=== PATIENT | female | born 1990 | race Caucasian/White ===

== ENCOUNTER 2017-04-14 06:44 | Inpatient (IN) | payer BC ==
--- NOTE | 2017-04-14 08:19 | PCM.LDHP ---
L&D History of Present Illness - General Date of Service: 04/14/17 Admit Problem/Dx: Admission Diagnosis/Problem Admission Diagnosis/Problem Source of Information: Patient, EMS History Limitations: Reports: No Limitations - History of Present Illness Introduction:: Patient is a 26 year old 5 para 1-1-2-2, white female with an ANGÉLICA of , who was admitted with complaints of contractions. She is presently 4 cm dilated course: LMP was on 07/13/2016 was definite, and on control at the time of conception. She does not want an epidural. She had LGSIL on pap smear. She does have a history of hemorrhages. Laboratory Testing: Blood type is O positive and antibody negative. Her first trimester labs hemoglobin was 12.5 and platelets were 255,000. She is rubella immune. HIV and hepatitis B assays were negative. Chlamydia and gonorrhea were negative. Second trimester labs showed hemoglobin of 12.2 and platelets were 210,000. One hour gluocse was 129 - normal. She is GBS negative. - Related Data Allergies/Adverse Reactions: Allergies Allergy/AdvReac Type Severity Reaction Status Date / Time acetaminophen [From Lortab] Allergy Other Verified 09/15/15 19:12 [employer] celecoxib [From Celebrex] Allergy Hives Verified 09/15/15 19:12 [employer] hydrocodone bitartrate Allergy Other Verified 09/15/15 19:12 [employer] [From Lortab] Sulfa (Sulfonamide Allergy Hives Verified 09/15/15 19:12 [employer] Antibiotics) Past Medical History - Past Health History Medical/Surgical History: Denies Medical/Surgical History Cardiovascular History: Reports: Heart Murmur Other OB/BYN History: hemorrhage at 15 and 22 days - Past Surgical History Female Surgical History: Reports: D&C (for SAB) Social & Family History - Family History Cardiac: Reports: High Cholesterol (father), [place] (maternal grandmother) Immunologic: Reports: Other (See Below) (scleroderma; mother) Other Oncologic Family History: stomach cancer; paternal grandfather - Tobacco Use Smoking Status *Q: Never Smoker Second Hand Smoke Exposure: No - Recreational Drug Use Recreational Drug Use: No H&P Review of Systems - Review of Systems: Review Of Systems: See Below General: Reports: No Symptoms Cardiovascular: Reports: No Symptoms Gastrointestinal: Reports: No Symptoms Genitourinary: Reports: No Symptoms L&D Exam - Exam Exam: See Below - Vital Signs Vital Signs: pre weight of 163 current weight 214 Weight: 165 lb - OB Specific Fundal Height In cm: 38 Movement: Active Heart Tones: Present Heart Tones per Min: 143 Heart Rate (FHR) Variability: Moderate (6-25 bmp) - Calrk Score Clark Score Cervix Position: Midposition Clark Score Consistency: Soft Clark Score Dilation: 3-4 cm Clark Score 's Station: -2 - Exam General: Alert, Oriented Neck: Supple, Trachea Midline Lungs: Clear to Auscultation, Normal Respiratory Effort Cardiovascular: Regular Rate, Regular Rhythm GI/Abdominal Exam: Soft, Non-Tender Extremities: No Pedal Edema - Problem List (1) 39 weeks gestation of SNOMED Code(s): 26389883 ICD Code: Z3A.39 - 39 WEEKS GESTATION OF Status: Acute Current Visit: Yes Problem List Initiated/Reviewed/Updated: No Assessment/Plan Comment:: Assessment: 1. Term intrauterine at 39 and 2/7th weeks gestational age, active labor, rogression of cervical dilation. 2. Group B strep screen negative 3. Patient does not desire epidural Plan: 1. Anticipate normal spontaneous vaginal delivery 2. epidural prn patient's desire 3. cbc if patient desires epidural
[2017-04-14] MEDS ORDERED: Nalbuphine 20 MG/1 ML Amp IVPUSH PRN (08:44)
[2017-04-14] MEDS ORDERED: Misoprostol 200 MCG Tab PO PRN ×2 (08:44→21:00)
[2017-04-14] MEDS ORDERED: Sodium Chloride 0.9% 10 ML Syringe FLUSH PRN (08:44)
[2017-04-14] MEDS ORDERED: Ondansetron 4 MG/2 ML SDV IVPUSH PRN (08:44)
[2017-04-14] MEDS ORDERED: Diphtheria,Pertussis(Acell),Tetanus Vaccine 0.5 ML SDV IM ONE (10:05)
[2017-04-14] MEDS ORDERED: Lidocaine 1% 50 ML MDV INJECT ONE (11:00)
[2017-04-14] MEDS ORDERED: Oxytocin/Lactated Ringers 10 UNIT/1,000 ML BAG IV ONE (11:23)
[2017-04-14] MEDS ORDERED: Oxytocin/Lactated Ringers 10 UNIT/1,000 ML BAG IV SCH (11:30)
[2017-04-14] MEDS ORDERED: Lactated Ringers 1,000 ML IV SCH (11:30)
--- NOTE | 2017-04-14 12:52 | PCM.SN ---
- Free Text/Narrative Note: Cervix 7 cm, 80% effaced, soft, mid-position, vertex-1 Cat I FHR
[2017-04-14] MEDS ORDERED: Lidocaine 1% 50 ML MDV ONE (13:13)
--- NOTE | 2017-04-14 14:30 | PCM.DEL ---
L & D Note - General Info Date of Service: 04/14/17 Mother's Due Date: 04/19/17 - Delivery Note Labor: Spontaneous, Augmented by ARM, Augmented by Oxytocin Delivery Outcome: Livebirth (Male liveborn Wednesday 1410 hrs. 04/14/17 REBECCA Apgars 8/9 weight pending) Infant Delivery Method: Spontaneous Vaginal Delivery Infant Delivery Mode: Spontaneous Presentation: Left Occiput Anterior (REBECCA) Nuchal Cord: Present (Times one easily reduced over the head) Prep: Povidone-Iodine (Betadine Anesthesia Type: None Amniotic Fluid Description: Clear Episiotomy Type: None Laceration: None Placenta: Intact, Spontaneous (Delivered intact Silver 1415 hrs. 04/14/17 examined discarded) Cord: 3 Vessels Estimated Blood Loss: 200 Resuscitation Needed: No : Suctioned, Bulb Syringe, Stimulated, Warmed, [place] Used Provider: Alexander Smith Score 1 min: 8 Score 5 min: 9 - Patient Data Vitals - Most Recent: Last Vital Signs Temp 97.2 F 04/14/17 08:00 Pulse 83 04/14/17 08:00 Resp 18 04/14/17 08:00 BP 126/73 04/14/17 08:00 Pulse Ox 99 04/14/17 08:00 Weight - Most Recent: 165 lb Lab Results Last 24 Hours: Laboratory Results - last 24 hr 04/14/17 04/14/17 Range/Units 08:00 08:00 WBC 11.96 H (3.98-10.04) K/mm3 RBC 4.02 (3.98-5.22) M/mm3 Hgb 12.8 (11.2-15.7) gm/L Hct 38.3 (34.1-44.9) % MCV 95.3 H (79.4-94.8) fl MCH 31.8 (25.6-32.2) pg MCHC 33.4 (32.2-35.5) g/dl RDW Std Deviation 47.2 H (36.4-46.3) fL Plt Count 166 L (182-369) K/mm3 MPV 11.4 (9.4-12.3) fl Blood Type O POSITIVE Gel Antibody Screen Negative Med Orders - Current: Current Medications Oxytocin 20 unit/ Lactated (Ringer's) 1,002 mls @ 500 mls/hr IV ASDIRECTED JACKIE Last Admin: 04/14/17 14:11 Dose: 999 mls/hr Oxytocin/Lactated Ringer's (Pitocin In Lr 10 Units/1,000 Ml) 10 unit in 1,000 mls @ 12 mls/hr IV TITRATE JACKIE; 2 MUNITS/MIN PRN Reason: Protocol Last Titration: 04/14/17 13:59 Dose: 8 munits/min, 48 mls/hr Lactated Ringer's (Ringers, Lactated) 1,000 mls @ 125 mls/hr IV ASDIRECTED JACKIE Last Admin: 04/14/17 11:33 Dose: 125 mls/hr Misoprostol (Cytotec) 400 mcg PO BID PRN PRN Reason: Excessive vaginal bleeding Last Admin: 04/14/17 14:15 Dose: 400 mcg Nalbuphine HCl (Nubain) 10 mg IVPUSH Q2H PRN PRN Reason: Pain (moderate 4-6) Ondansetron HCl (Zofran) 4 mg IVPUSH Q4H PRN PRN Reason: Nausea/Vomiting Sodium Chloride (Saline Flush) 10 ml FLUSH ASDIRECTED PRN PRN Reason: Keep Vein Open Discontinued Medications Diphtheria/Tetanus/Acell Pertussis (Adacel) 0.5 ml IM .ONCE ONE Stop: 04/14/17 10:06 Oxytocin/Lactated Ringer's (Pitocin In Lr 10 Units/1,000 Ml) Confirm Administered Dose 10 unit in 1,000 mls @ as directed IV .STK-MED ONE Stop: 04/14/17 11:24 Lidocaine HCl (Xylocaine 1%) 20 ml INJECT ONETIME ONE Stop: 04/14/17 11:01 Lidocaine HCl (Xylocaine 1%) Confirm Administered Dose 50 ml .ROUTE .STK-MED ONE Stop: 04/14/17 13:14 - Problem List & Annotations (1) 39 weeks gestation of SNOMED Code(s): 49233988 Code(s): Z3A.39 - 39 WEEKS GESTATION OF Status: Acute Current Visit: Yes (2) Nuchal cord without compression, delivered, current hospitalization SNOMED Code(s): 04416782 Code(s): O69.81X0 - LABOR AND DEL COMP BY CORD AROUND NECK, W/O COMPRSN, UNSP Status: Acute Current Visit: Yes - Problem List Review Problem List Initiated/Reviewed/Updated: No - My Orders Last 24 Hours: My Active Orders 04/14/17 08:44 Patient Status [ADT] Routine Activity as Tolerated [RC] PFP Communication Order [RC] ASDIRECTED Notify Provider [RC] PFP Notify Provider [RC] PRN Vital Signs [RC] PER UNIT ROUTINE Misoprostol [Cytotec] 400 mcg PO BID PRN Nalbuphine [Nubain] 10 mg IVPUSH Q2H PRN Ondansetron [Zofran] 4 mg IVPUSH Q4H PRN Sodium Chloride 0.9% [Saline Flush] 10 ml FLUSH ASDIRECTED PRN Electronic Heart Tones Ext w TOCO [WOMSER] Routine Electronic Heart Tones Internal [WOMSER] Per Unit Routine Peripheral IV Insertion Adult [OM.PC] Routine Resuscitation Status Routine 04/14/17 08:45 Peripheral IV Care [RC] . DIRECTED Oxytocin [Pitocin] 20 unit Lactated Ringers [Ringers, Lactated] 1,000 ml IV ASDIRECTED 04/14/17 10:05 Vaccines to be Administered [RC] PER UNIT ROUTINE 04/14/17 11:30 Lactated Ringers [Ringers, Lactated] 1,000 ml IV ASDIRECTED Oxytocin/Lactated Ringers [Pitocin in LR 10 Units/1,000 ML] 10 unit in 1,000 ml IV TITRATE 04/14/17 Breakfast Clear Liquid Diet [DIET] - Plan Plan:: Assessment: 1. Term intrauterine at 39 and 2/7th weeks gestational age, active labor, rogression of cervical dilation. 2. Group B strep screen negative 3. Patient does not desire epidural Plan: 1. Anticipate normal spontaneous vaginal delivery 2. epidural prn patient's desire 3. cbc if patient desires epidural
[2017-04-14] MEDS ORDERED: Acetaminophen 325 MG Tab PO PRN (14:59)
[2017-04-14] MEDS ORDERED: Benzocaine/Menthol 20%-0.5% Spray 56 GM Canister TOP PRN (15:13)
[2017-04-14] MEDS ORDERED: Witch Hazel Medicated Pads 100/Jar TOP PRN (15:13)
[2017-04-14] MEDS: Docusate Sodium 100 MG Cap PO PRN (15:26)
[2017-04-14] MEDS: Ibuprofen 600 MG Tab PO PRN ×2 (15:27→20:08)
[2017-04-14] MEDS ORDERED: Misoprostol 200 MCG Tab ONE (16:55)
[2017-04-14] MEDS: Misoprostol 200 MCG Tab PO SCH ×3 (16:58→21:18)
[2017-04-14] MEDS ORDERED: Misoprostol 100 MCG Tab ONE (21:12)
[2017-04-15] MEDS ORDERED: Misoprostol 200 MCG Tab PO PRN ×2 (03:00→09:28)
[2017-04-15] MEDS ORDERED: Misoprostol 100 MCG Tab ONE (03:23)
[2017-04-15] MEDS: Ibuprofen 600 MG Tab PO PRN ×2 (03:43→16:30)
--- NOTE | 2017-04-15 09:31 | PCM.SN ---
- Free Text/Narrative Note: Moderate bleeding through the night on Cytotec q6h. Breast feeding. Chest clear , normal heart exam, uterus involuting, slight increased vaginal bleeding under control with cytotec, no leg cramping. Lives in [place] ([address]) will keep until tomorrow.
[2017-04-15] MEDS: Misoprostol 200 MCG Tab PO SCH ×3 (10:04→22:09)
[2017-04-15] MEDS: Docusate Sodium 100 MG Cap PO PRN (16:31)
[2017-04-15] MEDS: Loratadine 10 MG Tab PO SCH (22:10)
[2017-04-16] MEDS: Misoprostol 200 MCG Tab PO SCH ×2 (03:47→09:18)
[2017-04-16 03:51] VITALS: BP 122/60
--- NOTE | 2017-04-16 08:57 | PCM.DCSUM1 ---
Discharge Summary - Hospital Course Free Text/Narrative:: [facility] LIVE L/D Delivery Note Patient Name: FLAKO MORE Date of : 88 Patient Status: Inpatient Attending Provider: Alexander Smith Date: 04/14/17 14:26 Initialization Date: 04/14/17 14:26 L & D Note - General Info Date of Service: 04/14/17 Mother's Due Date: 04/19/17 - Delivery Note Labor: Spontaneous, Augmented by ARM, Augmented by Oxytocin Delivery Outcome: Livebirth (Male liveborn Wednesday 1410 hrs. 04/14/17 REBECCA Apgars 8/9 weight pending) Delivery Method: Spontaneous Vaginal Delivery Infant Delivery Mode: Spontaneous Presentation: Left Occiput Anterior (REBECCA) Nuchal Cord: Present (Times one easily reduced over the head) Prep: Povidone-Iodine (Betadine Anesthesia Type: None Amniotic Fluid Description: Clear Episiotomy Type: None Laceration: None Placenta: Intact, Spontaneous (Delivered intact [facility] 1415 hrs. 04/14/17 examined discarded) Cord: 3 Vessels Estimated Blood Loss: 200 Resuscitation Needed: No Lima: Suctioned, Bulb Syringe, Stimulated, Warmed, Floral Used Provider: Alexander Smith Score 1 min: 8 Score 5 min: 9 - Patient Data Vitals - Most Recent: Last Vital Signs Temp 97.2 F 04/14/17 08:00 Pulse 83 04/14/17 08:00 Resp 18 04/14/17 08:00 BP 126/73 04/14/17 08:00 Pulse Ox 99 04/14/17 08:00 Weight - Most Recent: 165 lb Lab Results Last 24 Hours: Laboratory Results - last 24 hr 04/14/17 04/14/17 Range/Units 08:00 08:00 WBC 11.96 H (3.98-10.04) K/mm3 RBC 4.02 (3.98-5.22) M/mm3 Hgb 12.8 (11.2-15.7) gm/L Hct 38.3 (34.1-44.9) % MCV 95.3 H (79.4-94.8) fl MCH 31.8 (25.6-32.2) pg MCHC 33.4 (32.2-35.5) g/dl RDW Std Deviation 47.2 H (36.4-46.3) fL Plt Count 166 L (182-369) K/mm3 MPV 11.4 (9.4-12.3) fl Blood Type O POSITIVE Gel Antibody Screen Negative Med Orders - Current: Current Medications Oxytocin 20 unit/ Lactated (Ringer's) 1,002 mls @ 500 mls/hr IV ASDIRECTED JACKIE Last Admin: 04/14/17 14:11 Dose: 999 mls/hr Oxytocin/Lactated Ringer's (Pitocin In Lr 10 Units/1,000 Ml) 10 unit in 1,000 mls @ 12 mls/hr IV TITRATE JACKIE; 2 MUNITS/MIN PRN Reason: Protocol Last Titration: 04/14/17 13:59 Dose: 8 munits/min, 48 mls/hr Lactated Ringer's (Ringers, Lactated) 1,000 mls @ 125 mls/hr IV ASDIRECTED JACKIE Last Admin: 04/14/17 11:33 Dose: 125 mls/hr Misoprostol (Cytotec) 400 mcg PO BID PRN PRN Reason: Excessive vaginal bleeding Last Admin: 04/14/17 14:15 Dose: 400 mcg Nalbuphine HCl (Nubain) 10 mg IVPUSH Q2H PRN PRN Reason: Pain (moderate 4-6) Ondansetron HCl (Zofran) 4 mg IVPUSH Q4H PRN PRN Reason: Nausea/Vomiting Sodium Chloride (Saline Flush) 10 ml FLUSH ASDIRECTED PRN PRN Reason: Keep Vein Open Discontinued Medications Diphtheria/Tetanus/Acell Pertussis (Adacel) 0.5 ml IM .ONCE ONE Stop: 04/14/17 10:06 Oxytocin/Lactated Ringer's (Pitocin In Lr 10 Units/1,000 Ml) Confirm Administered Dose 10 unit in 1,000 mls @ as directed IV .STK-MED ONE Stop: 04/14/17 11:24 Lidocaine HCl (Xylocaine 1%) 20 ml INJECT ONETIME ONE Stop: 04/14/17 11:01 Lidocaine HCl (Xylocaine 1%) Confirm Administered Dose 50 ml .ROUTE .STK-MED ONE Stop: 04/14/17 13:14 - Problem List & Annotations (1) 39 weeks gestation of SNOMED Code(s): 29904520 Code(s): Z3A.39 - 39 WEEKS GESTATION OF Status: Acute Current Visit: Yes (2) Nuchal cord without compression, delivered, current hospitalization SNOMED Code(s): 14428935 Code(s): O69.81X0 - LABOR AND DEL COMP BY CORD AROUND NECK, W/O COMPRSN, UNSP Status: Acute Current Visit: Yes - Problem List Review Problem List Initiated/Reviewed/Updated: No - My Orders Last 24 Hours: My Active Orders 04/14/17 08:44 Patient Status [ADT] Routine Activity as Tolerated [RC] PFP Communication Order [RC] ASDIRECTED Notify Provider [RC] PFP Notify Provider [RC] PRN Vital Signs [RC] PER UNIT ROUTINE Misoprostol [Cytotec] 400 mcg PO BID PRN Nalbuphine [Nubain] 10 mg IVPUSH Q2H PRN Ondansetron [Zofran] 4 mg IVPUSH Q4H PRN Sodium Chloride 0.9% [Saline Flush] 10 ml FLUSH ASDIRECTED PRN Electronic Heart Tones Ext w TOCO [WOMSER] Routine Electronic Heart Tones Internal [WOMSER] Per Unit Routine Peripheral IV Insertion Adult [OM.PC] Routine Resuscitation Status Routine 04/14/17 08:45 Peripheral IV Care [RC] . DIRECTED Oxytocin [Pitocin] 20 unit Lactated Ringers [Ringers, Lactated] 1,000 ml IV ASDIRECTED 04/14/17 10:05 Vaccines to be Administered [RC] PER UNIT ROUTINE 04/14/17 11:30 Lactated Ringers [Ringers, Lactated] 1,000 ml IV ASDIRECTED Oxytocin/Lactated Ringers [Pitocin in LR 10 Units/1,000 ML] 10 unit in 1,000 ml IV TITRATE 04/14/17 Breakfast Clear Liquid Diet [DIET] - Plan Plan:: Assessment: 1. Term intrauterine at 39 and 2/7th weeks gestational age, active labor, rogression of cervical dilation. 2. Group B strep screen negative 3. Patient does not desire epidural Plan: 1. Anticipate normal spontaneous vaginal delivery 2. epidural prn patient's desire 3. cbc if patient desires epidural HPI Initial Comments: [facility] LIVE L/D Delivery Note Patient Name: FLAKO MORE Date of : 88 Patient Status: Inpatient Attending Provider: Alexander Smith Date: 04/14/17 14:26 Initialization Date: 04/14/17 14:26 L & D Note - General Info Date of Service: 04/14/17 Mother's Due Date: 04/19/17 - Delivery Note Labor: Spontaneous, Augmented by ARM, Augmented by Oxytocin Delivery Outcome: Livebirth (Male liveborn Wednesday 1410 hrs. 04/14/17 REBECCA Apgars 8/9 weight pending) Delivery Method: Spontaneous Vaginal Delivery Infant Delivery Mode: Spontaneous Presentation: Left Occiput Anterior (REBECCA) Nuchal Cord: Present (Times one easily reduced over the head) Prep: Povidone-Iodine (Betadine Anesthesia Type: None Amniotic Fluid Description: Clear Episiotomy Type: None Laceration: None Placenta: Intact, Spontaneous (Delivered intact [facility] 1415 hrs. 04/14/17 examined discarded) Cord: 3 Vessels Estimated Blood Loss: 200 Resuscitation Needed: No Lima: Suctioned, Bulb Syringe, Stimulated, Warmed, Floral Used Provider: Alexander Smith Score 1 min: 8 Score 5 min: 9 - Patient Data Vitals - Most Recent: Last Vital Signs Temp 97.2 F 04/14/17 08:00 Pulse 83 04/14/17 08:00 Resp 18 04/14/17 08:00 BP 126/73 04/14/17 08:00 Pulse Ox 99 04/14/17 08:00 Weight - Most Recent: 165 lb Lab Results Last 24 Hours: Laboratory Results - last 24 hr 04/14/17 04/14/17 Range/Units 08:00 08:00 WBC 11.96 H (3.98-10.04) K/mm3 RBC 4.02 (3.98-5.22) M/mm3 Hgb 12.8 (11.2-15.7) gm/L Hct 38.3 (34.1-44.9) % MCV 95.3 H (79.4-94.8) fl MCH 31.8 (25.6-32.2) pg MCHC 33.4 (32.2-35.5) g/dl RDW Std Deviation 47.2 H (36.4-46.3) fL Plt Count 166 L (182-369) K/mm3 MPV 11.4 (9.4-12.3) fl Blood Type O POSITIVE Gel Antibody Screen Negative Med Orders - Current: Current Medications Oxytocin 20 unit/ Lactated (Ringer's) 1,002 mls @ 500 mls/hr IV ASDIRECTED JACKIE Last Admin: 04/14/17 14:11 Dose: 999 mls/hr Oxytocin/Lactated Ringer's (Pitocin In Lr 10 Units/1,000 Ml) 10 unit in 1,000 mls @ 12 mls/hr IV TITRATE JACKIE; 2 MUNITS/MIN PRN Reason: Protocol Last Titration: 04/14/17 13:59 Dose: 8 munits/min, 48 mls/hr Lactated Ringer's (Ringers, Lactated) 1,000 mls @ 125 mls/hr IV ASDIRECTED JACKIE Last Admin: 04/14/17 11:33 Dose: 125 mls/hr Misoprostol (Cytotec) 400 mcg PO BID PRN PRN Reason: Excessive vaginal bleeding Last Admin: 04/14/17 14:15 Dose: 400 mcg Nalbuphine HCl (Nubain) 10 mg IVPUSH Q2H PRN PRN Reason: Pain (moderate 4-6) Ondansetron HCl (Zofran) 4 mg IVPUSH Q4H PRN PRN Reason: Nausea/Vomiting Sodium Chloride (Saline Flush) 10 ml FLUSH ASDIRECTED PRN PRN Reason: Keep Vein Open Discontinued Medications Diphtheria/Tetanus/Acell Pertussis (Adacel) 0.5 ml IM .ONCE ONE Stop: 04/14/17 10:06 Oxytocin/Lactated Ringer's (Pitocin In Lr 10 Units/1,000 Ml) Confirm Administered Dose 10 unit in 1,000 mls @ as directed IV .STK-MED ONE Stop: 04/14/17 11:24 Lidocaine HCl (Xylocaine 1%) 20 ml INJECT ONETIME ONE Stop: 04/14/17 11:01 Lidocaine HCl (Xylocaine 1%) Confirm Administered Dose 50 ml .ROUTE .STK-MED ONE Stop: 04/14/17 13:14 - Problem List & Annotations (1) 39 weeks gestation of SNOMED Code(s): 54642985 Code(s): Z3A.39 - 39 WEEKS GESTATION OF Status: Acute Current Visit: Yes (2) Nuchal cord without compression, delivered, current hospitalization SNOMED Code(s): 49419079 Code(s): O69.81X0 - LABOR AND DEL COMP BY CORD AROUND NECK, W/O COMPRSN, UNSP Status: Acute Current Visit: Yes - Problem List Review Problem List Initiated/Reviewed/Updated: No - My Orders Last 24 Hours: My Active Orders 04/14/17 08:44 Patient Status [ADT] Routine Activity as Tolerated [RC] PFP Communication Order [RC] ASDIRECTED Notify Provider [RC] PFP Notify Provider [RC] PRN Vital Signs [RC] PER UNIT ROUTINE Misoprostol [Cytotec] 400 mcg PO BID PRN Nalbuphine [Nubain] 10 mg IVPUSH Q2H PRN Ondansetron [Zofran] 4 mg IVPUSH Q4H PRN Sodium Chloride 0.9% [Saline Flush] 10 ml FLUSH ASDIRECTED PRN Electronic Heart Tones Ext w TOCO [WOMSER] Routine Electronic Heart Tones Internal [WOMSER] Per Unit Routine Peripheral IV Insertion Adult [OM.PC] Routine Resuscitation Status Routine 04/14/17 08:45 Peripheral IV Care [RC] . DIRECTED Oxytocin [Pitocin] 20 unit Lactated Ringers [Ringers, Lactated] 1,000 ml IV ASDIRECTED 04/14/17 10:05 Vaccines to be Administered [RC] PER UNIT ROUTINE 04/14/17 11:30 Lactated Ringers [Ringers, Lactated] 1,000 ml IV ASDIRECTED Oxytocin/Lactated Ringers [Pitocin in LR 10 Units/1,000 ML] 10 unit in 1,000 ml IV TITRATE 04/14/17 Breakfast Clear Liquid Diet [DIET] - Plan Plan:: Assessment: 1. Term intrauterine at 39 and 2/7th weeks gestational age, active labor, rogression of cervical dilation. 2. Group B strep screen negative 3. Patient does not desire epidural Plan: 1. Anticipate normal spontaneous vaginal delivery 2. epidural prn patient's desire 3. cbc if patient desires epidural Brief History: [facility] LIVE . L/D Delivery Note. [id number]. Date of : Patient Status: Inpatient. Attending Provider: Alexander Smith Number: [id number]. Date: 04/14/17 14:26Initialization Date: 04/14/17 14:26. L & D Note. - General Info. Date of Service: 04/14/17. Mother's Due Date: 04/19/17. - Delivery Note. Labor: Spontaneous, Augmented by ARM, Augmented by Oxytocin. Delivery Outcome: Livebirth (Male liveborn Wednesday 1410 hrs. REBECCA Apgars 8/9 weight pending). Delivery Method: Spontaneous Vaginal Delivery. Infant Delivery Mode: Spontaneous. Presentation: Left Occiput Anterior (REBECCA). Nuchal Cord: Present (Times one easily reduced over the head). Prep: Povidone-Iodine (Betadine. Anesthesia Type: None. Amniotic Fluid Description: Clear. Episiotomy Type: None. Laceration: None. Placenta: Intact , Spontaneous (Delivered intact [place] 1415 hrs. 04/14/17 examined discarded). Cord: 3 Vessels. Estimated Blood Loss: 200. Resuscitation Needed: No. Lima : Suctioned, Bulb Syringe, Stimulated, Warmed, Floral Used. Provider : Alexander Smith. Score 1 min: 8. Score 5 min: 9. - Patient Data. Vitals - Most Recent: Last Vital Signs. Temp 97.2 F 04/14/17 08:00. Pulse 83 04/14/17 08:00. Resp 18 04/14/17 08:00. BP 126/73 04/14/17 08:00. Pulse Ox 99 04/14/17 08:00. Weight - Most Recent: 165 lb. Lab Results Last 24 Hours: Laboratory Results - last 24 hr. 04/14/1708/09/17Range/Units. 08: 0008:00. WBC 11.96 H (3.98-10.04) K/mm3. RBC 4.02 (3.98-5.22) M/mm3. Hgb 12.8 (11.2-15.7) gm/L. Hct 38.3 (34.1-44.9) %. MCV 95.3 H (79.4-94.8) fl. MCH 31.8 (25.6-32.2) pg. MCHC 33.4 (32.2-35.5) g/dl. RDW Std Deviation 47.2 H (36.4-46.3) fL. Plt Count 166 L (182-369) K/mm3. MPV 11.4 (9.4-12.3) fl. Blood Type O POSITIVE. Gel Antibody Screen Negative. Med Orders - Current: Current Medications. Oxytocin 20 unit/ Lactated (Ringer's) 1,002 mls @ 500 mls /hr IV ASDIRECTED JACKIE. Last Admin: 04/14/17 14:11 Dose: 999 mls/hr. Oxytocin/ Lactated Ringer's (Pitocin In Lr 10 Units/1,000 Ml) 10 unit in 1,000 mls @ 12 mls/hr IV TITRATE JACKIE; 2 MUNITS/MIN. PRN Reason: Protocol. Last Titration: 05/23 13:59 Dose: 8 munits/min, 48 mls/hr. Lactated Ringer's (Ringers, Lactated) 1,000 mls @ 125 mls/hr IV ASDIRECTED JACKIE. Last Admin: 04/14/17 11: 33 Dose: 125 mls/hr. Misoprostol (Cytotec) 400 mcg PO BID PRN. PRN Reason: Excessive vaginal bleeding. Last Admin: 04/14/17 14:15 Dose: 400 mcg. Nalbuphine HCl (Nubain) 10 mg IVPUSH Q2H PRN. PRN Reason: Pain (moderate 4-6) . Ondansetron HCl (Zofran) 4 mg IVPUSH Q4H PRN. PRN Reason: Nausea/Vomiting. Sodium Chloride (Saline Flush) 10 ml FLUSH ASDIRECTED PRN. PRN Reason: Keep Vein Open. Discontinued Medications. Diphtheria/Tetanus/Acell Pertussis ( Adacel) 0.5 ml IM .ONCE ONE. Stop: 04/14/17 10:06. Oxytocin/Lactated Ringer' s (Pitocin In Lr 10 Units/1,000 Ml) Confirm Administered Dose 10 unit in 1,000 mls @ as directed IV .STK-MED ONE. Stop: 04/14/17 11:24. Lidocaine HCl ( Xylocaine 1%) 20 ml INJECT ONETIME ONE. Stop: 04/14/17 11:01. Lidocaine HCl ( Xylocaine 1%) Confirm Administered Dose 50 ml .ROUTE .STK-MED ONE. Stop: 13:14. - Problem List & Annotations. (1) 39 weeks gestation of . SNOMED Code(s): 98940551. Code(s): Z3A.39 - 39 WEEKS GESTATION OF Status: Acute Current Visit: Yes. (2) Nuchal cord without compression, delivered, current hospitalization. SNOMED Code(s): 83360651. Code(s): O69.81X0 - LABOR AND DEL COMP BY CORD AROUND NECK, W/O COMPRSN, UNSP Status: Acute Current Visit: Yes. - Problem List Review. Problem List Initiated/ Reviewed/Updated: No. - My Orders. Last 24 Hours: My Active Orders. 08:44. Patient Status [ADT] Routine. Activity as Tolerated [RC] PFP. Communication Order [RC] ASDIRECTED. Notify Provider [RC] PFP. Notify Provider [RC] PRN. Vital Signs [RC] PER UNIT ROUTINE. Misoprostol [Cytotec] 400 mcg PO BID PRN. Nalbuphine [Nubain] 10 mg IVPUSH Q2H PRN. Ondansetron [ Zofran] 4 mg IVPUSH Q4H PRN. Sodium Chloride 0.9% [Saline Flush] 10 ml FLUSH ASDIRECTED PRN. Electronic Heart Tones Ext w TOCO [WOMSER] Routine. Electronic Heart Tones Internal [WOMSER] Per Unit Routine. Peripheral IV Insertion Adult [OM.PC] Routine. Resuscitation Status Routine. 04/14/17 08:45. Peripheral IV Care [RC] . DIRECTED. Oxytocin [Pitocin] 20 unit Lactated Ringers [Ringers, Lactated] 1,000 ml IV ASDIRECTED. 04/14/17 10 :05. Vaccines to be Administered [RC] PER UNIT ROUTINE. 04/14/17 11:30. Lactated Ringers [Ringers, Lactated] 1,000 ml IV ASDIRECTED. Oxytocin/Lactated Ringers [Pitocin in LR 10 Units/1,000 ML] 10 unit in 1,000 ml IV TITRATE. 04/14 Breakfast. Clear Liquid Diet [DIET]. - Plan. Plan:: Assessment: 1. Term intrauterine at 39 and 2/7th weeks gestational age, active labor , rogression of cervical dilation. 2. Group B strep screen negative. 3. Patient does not desire epidural. Plan: 1. Anticipate normal spontaneous vaginal delivery. 2. epidural prn patient's desire. 3. cbc if patient desires epidural - Discharge Data Discharge Date: 04/16/17 Discharge Disposition: Home, Self-Care 01 Condition: Good - Discharge Diagnosis/Problem(s) (1) 39 weeks gestation of SNOMED Code(s): 23706148 ICD Code: Z3A.39 - 39 WEEKS GESTATION OF Status: Acute Current Visit: Yes (2) Nuchal cord without compression, delivered, current hospitalization SNOMED Code(s): 98191418 ICD Code: O69.81X0 - LABOR AND DEL COMP BY CORD AROUND NECK, W/O COMPRSN, UNSP Status: Acute Current Visit: Yes - Patient Summary/Data Complications: none Consults: none Hospital Course: uneventful - Patient Instructions Diet: Regular Diet as Tolerated Driving: Do Not Drive (x48 hrs) Showering/Bathing: May Shower Notify Provider of: Fever, Increased Pain, Swelling and Redness, Drainage, Nausea and/or Vomiting - Discharge Plan Prescriptions/Med Rec: Misoprostol [Cytotec] 200 mcg PO Q2HR #10 tablet Home Medications: Home Meds Cetirizine HCl [Zyrtec] 10 mg PO DAILY 04/14/17 [History] Ferrous Sulfate [Iron] 325 mg PO DAILY 04/14/17 [History] Pnv No.122/Iron/Folic Acid [ Multi Tablet] 1 each PO DAILY 04/14/17 [ History] Acetaminophen [Tylenol] 650 mg PO Q6H PRN #0 tablet 04/16/17 [Rx] Benzocaine/Menthol [Dermoplast Pain Relief [place]] 56 gm TOP ASDIRECTED PRN #0 canister 04/16/17 [Rx] Docusate Sodium [Colace] 100 mg PO BID PRN #0 cap 04/16/17 [Rx] Ibuprofen [IJD: Ibuprofen] 600 mg PO Q6H PRN #0 tablet 04/16/17 [Rx] Misoprostol [Cytotec] 200 mcg PO Q2HR #10 tablet 04/16/17 [Rx] Referrals: Alexander Smith MD [Primary Care Provider] - (6 weeks) - Discharge Summary/Plan Comment DC Time >30 min.: No - Patient Data Vitals - Most Recent: Last Vital Signs Temp 97.5 F 04/16/17 02:47 Pulse 69 04/16/17 02:47 Resp 14 04/16/17 02:47 BP 122/60 04/16/17 02:47 Pulse Ox 99 04/16/17 02:47 Weight - Most Recent: 165 lb Med Orders - Current: Current Medications Acetaminophen (Tylenol) 650 mg PO Q4H PRN PRN Reason: mild pain or fever Last Admin: 04/14/17 20:09 Dose: 650 mg Benzocaine/Menthol (Dermoplast Pain Relief [place]) 56 gm TOP ASDIRECTED PRN PRN Reason: perineal discomfort Last Admin: 04/14/17 15:28 Dose: 1 can Docusate Sodium (Colace) 100 mg PO BID PRN PRN Reason: Constipation Last Admin: 04/15/17 16:31 Dose: 100 mg Ibuprofen (Motrin) 600 mg PO Q4H PRN PRN Reason: Mild pain or fever Last Admin: 04/15/17 16:30 Dose: 600 mg Loratadine (Claritin) 10 mg PO DAILY [facility] Last Admin: 04/15/17 22:10 Dose: Not Given Misoprostol (Cytotec) 200 mcg PO Q6H [facility] Last Admin: 04/16/17 03:47 Dose: 200 mcg Witch Maryanne (Tucks) 1 pad TOP ASDIRECTED PRN PRN Reason: Hemorrhoids Last Admin: 04/14/17 15:28 Dose: 1 container Discontinued Medications Diphtheria/Tetanus/Acell Pertussis (Adacel) 0.5 ml IM .ONCE ONE Stop: 04/14/17 10:06 Last Admin: 04/15/17 03:45 Dose: 0.5 ml Oxytocin 20 unit/ Lactated (Ringer's) 1,002 mls @ 500 mls/hr IV ASDIRECTED [facility] Last Admin: 04/14/17 14:11 Dose: 999 mls/hr Oxytocin/Lactated Ringer's (Pitocin In Lr 10 Units/1,000 Ml) 10 unit in 1,000 mls @ 12 mls/hr IV TITRATE JACKIE; 2 MUNITS/MIN PRN Reason: Protocol Last Titration: 04/14/17 15:11 Dose: 999 mls/hr Lactated Ringer's (Ringers, Lactated) 1,000 mls @ 125 mls/hr IV ASDIRECTED JACKIE Last Admin: 04/14/17 11:33 Dose: 125 mls/hr Oxytocin/Lactated Ringer's (Pitocin In Lr 10 Units/1,000 Ml) Confirm Administered Dose 10 unit in 1,000 mls @ as directed IV .STK-MED ONE Stop: 04/14/17 11:24 Last Admin: 04/14/17 17:41 Dose: Not Given Lidocaine HCl (Xylocaine 1%) 20 ml INJECT ONETIME ONE Stop: 04/14/17 11:01 Last Admin: 04/14/17 17:41 Dose: Not Given Lidocaine HCl (Xylocaine 1%) Confirm Administered Dose 50 ml .ROUTE .STK-MED ONE Stop: 04/14/17 13:14 Last Admin: 04/14/17 17:41 Dose: Not Given Misoprostol (Cytotec) 400 mcg PO BID PRN PRN Reason: Excessive vaginal bleeding Last Admin: 04/14/17 14:15 Dose: 400 mcg Misoprostol (Cytotec) 200 mcg PO Q6H PRN PRN Reason: Bleeding Stop: 04/16/17 15:01 Misoprostol (Cytotec) Confirm Administered Dose 200 mcg .ROUTE .STK-MED ONE Stop: 04/14/17 16:56 Last Admin: 04/14/17 17:41 Dose: Not Given Misoprostol (Cytotec) 200 mcg PO Q2H JACKIE Stop: 04/14/17 21:01 Last Admin: 04/14/17 21:18 Dose: 200 mcg Misoprostol (Cytotec) 200 mcg PO Q6H PRN PRN Reason: Bleeding Stop: 04/16/17 21:01 Misoprostol (Cytotec) Confirm Administered Dose 100 mcg .ROUTE .STK-MED ONE Stop: 04/14/17 21:13 Last Admin: 04/15/17 03:49 Dose: 100 mcg Misoprostol (Cytotec) Confirm Administered Dose 200 mcg .ROUTE .STK-MED ONE Stop: 04/15/17 03:24 Last Admin: 04/15/17 03:49 Dose: 200 mcg Misoprostol (Cytotec) 200 - 800 mcg PO Q6H PRN PRN Reason: Bleeding Nalbuphine HCl (Nubain) 10 mg IVPUSH Q2H PRN PRN Reason: Pain (moderate 4-6) Ondansetron HCl (Zofran) 4 mg IVPUSH Q4H PRN PRN Reason: Nausea/Vomiting Sodium Chloride (Saline Flush) 10 ml FLUSH ASDIRECTED PRN PRN Reason: Keep Vein Open *Q Meaningful Use (DIS) - VTE *Q VTE Criteria *Q: - Stroke *Q Stroke Criteria *Q: - AMI *Q AMI Criteria *Q:
[2017-04-16] MEDS: Ibuprofen 600 MG Tab PO PRN (09:18)
[2017-04-16] MEDS: Loratadine 10 MG Tab PO SCH (09:53)
== END 2017-04-16 10:45 | disposition home or self-care (01) | DRG 560 ==
LOC: JD.OB 06:44 → JD.OBCHECK 06:44 → JD.OB 08:44 → JD.MS 14:10 → OBSVTOIN 14:10 → JD.OB 18:45
PROVIDERS: ADMIT Obstetrics & Gynecology; ATTEND Obstetrics & Gynecology
PROC: 10E0XZZ Delivery of Products of Conception, External Approach (ICD-10-PCS; principal; 2017-04-14)
PROC: 10907ZC Drainage of Amniotic Fluid, Therapeutic from Products of Conception, Via Natural or Artificial Opening (ICD-10-PCS; 2017-04-14)
PROC: 3E0234Z Introduction of Serum, Toxoid and Vaccine into Muscle, Percutaneous Approach (ICD-10-PCS; 2017-04-15)
DX: O69.81X0 Labor and delivery complicated by cord around neck, without compression, not applicable or unspecified (principal); Z3A.39 39 weeks gestation of pregnancy; Z37.0 Single live birth; Z23 Encounter for immunization
CPT/HCPCS: 36415; 85025; 85027; 86850; 86900; 86901; 90715; A9270-GY; J2590; J7120